=== PATIENT | female | born 1970 | race Caucasian/White ===

== ENCOUNTER 2021-11-06 05:55 | Day surgery (SDC) | payer OTHER ==
[2021-10-30 13:43] VITALS: BMI 26.5
[2021-11-06] MEDS ORDERED: BUPIVACAINE HCL 50 ML ONE (07:15)
[2021-11-06] MEDS ORDERED: LIDOCAINE HCL 2% (20ML MULTI-DOSE VIAL) ONE (07:15)
[2021-11-06] MEDS ORDERED: MIDAZOLAM HCL 2 MG/2 ML SINGLE DOSE VIAL ONE (07:21)
[2021-11-06] MEDS ORDERED: ONDANSETRON 4 MG/2 ML VIAL ONE ×2 (07:22→08:15)
[2021-11-06] MEDS ORDERED: DEXAMETHASONE SOD PHOSPHATE 4 MG/1 ML VIAL ONE ×2 (07:22→08:15)
[2021-11-06] MEDS ORDERED: PROPOFOL 20 ML ONE ×2 (07:22)
[2021-11-06] MEDS ORDERED: ceFAZolin SODIUM 1 GM VIAL ONE (07:43)
[2021-11-06] MEDS ORDERED: KETOROLAC TROMETHAMINE 30 MG/1 ML VIAL ONE (07:43)
[2021-11-06] MEDS ORDERED: ACETAMINOPHEN WITH CODEINE 300MG/30MG TABLET PO PRN (08:33)
[2021-11-06] MEDS ORDERED: oxyCODONE HCL 5 MG TABLET PO PRN ×2 (08:35)
[2021-11-06] MEDS ORDERED: ONDANSETRON 4 MG/2 ML VIAL IVPUSH PRN (08:35)
[2021-11-06] MEDS ORDERED: ACETAMINOPHEN 1000 MG/100 ML BAG IVPB PRN (08:36)
[2021-11-06] MEDS ORDERED: LACTATED RINGERS SOLUTION 1,000 ML IV SCH (08:45)
[2021-11-06 11:00] VITALS: TEMP 98
[2021-11-06 11:20] VITALS: BP 127/70; PULSE 78
== END 2021-11-06 11:20 | disposition home or self-care (01) ==
LOC: FASU 05:55
PROVIDERS: ATTEND Podiatrist
PROC: 0QBN0ZZ Excision of Right Metatarsal, Open Approach (ICD-10-PCS; principal; 2021-11-06 07:49)
DX: M20.21 Hallux rigidus, right foot (principal)
CPT/HCPCS: 73630-TC-RT-FY; 81025; 88305-TC; 88311-TC; 94760